=== PATIENT | female | born 1945 | race Caucasian/White ===

== ENCOUNTER 2025-01-27 03:02 | Emergency (ER) | payer OTHER, BC ==
[2025-01-27] MEDS ORDERED: LIDOCAINE 1% 20 ML MDV ONE (04:14)
--- NOTE | 2025-01-27 05:36 | RAD REPORT ---
PROCEDURE: CT Head Without Intravenous Contrast CLINICAL INDICATION: The patient is 79 years old and is Female; head injury Bed Name: 3 TECHNIQUE: Axial computed tomography images of the head/brain without intravenous contrast. Sagittal and coron al reformatted images were created and reviewed. This CT exam was performed using one or more of the following dose reduction techniques: automated exposure control, adjustment of the mA and/or kV according to patient size, and/or use of iterative reconstruction technique. COMPARISON: No relevant prior studies available. FINDINGS: BRAIN: Mild to moderate global cerebral atrophy with commensurate sulcal and ventricular enlargemen t, not greater than expected for patient age. Mild bilateral basal ganglia calcifications, nonspecific but most commonly suggestive of poor ly controlled hypertension. No extra-axial fluid collection. No intracranial hemorrhage. No transtentorial herniation. No focal simeon-white matter differentiation abnormality. MIDLINE SHIFT: No midline shift. VENTRICLES: See above. BONES/JOINTS: No fracture of the calvarium or visualized facial bones. SOFT TISSUES: Moderate-sized left supraorbital scalp contusion. SINUSES: No masses, bony erosion or evidence of acute sinusitis. MASTOID AIR CELLS: Unremarkable as visualized. No mastoid effusion. IMPRESSION: 1. Moderate-sized left supraorbital scalp contusion. 2. Chronic and senescent changes with no acute intracranial abnormality. Electronically signed by: Robb Lerner MD 01/27/2025 05:28 AM CDT Due to temporary technical issues with the PACS/[place] reporting system, reports are being katelin d by the in-house radiologist without review as a courtesy to ensure prompt reporting the interpreting radiologist is fully responsible for the content of the report. Transcribed Date/Time: 01/27/2025 5:36 AM
[2025-01-27] MEDS ORDERED: TDAP (DIPHTH,PERTUSS(ACELL),TET VAC) 0.5 ML VIAL IMVAC ONE (06:20)
--- NOTE | 2025-01-27 06:20 | ER ---
Nurse's Notes [facility] Name: Lacey Juares Age: 79 yrs Sex: Female : 1945 Arrival Date: 01/27/2025 Time: 03:02 Bed 3 Private MD: Diagnosis: Acute fall at home, acute left upper lateral eyelid Laceration , initial encounter;Acute left periorbital contusion, acute left upper cheek abrasion Presentation: 01/27 03:29 Chief complaint: Patient states: S/P FALL AT APROX 0145. PT ARRIVES TO ER WITH br2 LACERATION TO LEFT FOREHEAD SUPERIOR TO LEFT EYEBROW APPROX 1" IN LENGTH. BLEEDING CONTROLLED ON ER ARRIVAL. Coronavirus screen: Client denies travel out of the [place] in the last 14 days. Ebola Screen: Patient denies exposure to infectious person. Initial Sepsis Screen: Does the patient meet any 2 criteria? No. Patient's initial sepsis screen is negative. Does the patient have a suspected source of infection? No. Patient's initial sepsis screen is negative. Risk Assessment: Do you want to hurt yourself or someone else? Patient reports no desire to harm self or others. Onset of symptoms was January 27, 2025 at 01:45. 03:29 Method Of Arrival: Wheelchair br2 03:29 Acuity: ANGELA 3 br2 Triage Assessment: 03:35 General: Appears in no apparent distress. comfortable, slender, Behavior is calm, br2 cooperative. Pain: Unable to use pain scale. DEMENTIA. Historical: - Allergies: 03:35 No Known Allergies; br2 - PMHx: 03:35 Dementia; br2 - Immunization history:: Adult Immunizations up to date. - Infectious Disease History:: Denies. - Social history:: Smoking status: Patient denies any tobacco usage or history of. - Family history:: not pertinent. Screenin:[facility] ED Fall Risk Assessment (Adult) History of falling in the last 3 months, dd2 including since admission Yes- single mechanical fall (1 pt) Confusion or Disorientation Yes (5 pts) Intoxicated or Sedated No (0 pts) Impaired Gait No (0 pts) Mobility Assist Device Used Yes (1 pt) Altered Elimination No (0 pt) Score/Fall Risk Level 3 or more points = High Risk Oriented to surroundings, Maintained a safe environment, Educated pt \\T\\ family on fall prevention, incl call for assistance when getting out of bed, Assessed \\T\\ reinforced patient's understanding of fall precautions, Hourly rounding (assess needs \\T\\ fall precautionary measures) done, Used ambulatory aids as needed (educated on \\T\\ assisted with), Activated bed/chair alarm, Utilized family, sitter, or virtual forestry biology specialist as indicated. Abuse screen: Denies threats or abuse. Denies injuries from another. Nutritional screening: No deficits noted. Tuberculosis screening: No symptoms or risk factors identified. Assessment: 03:50 General: Appears in no apparent distress. uncomfortable, Behavior is cooperative, dd2 restless. Pain: Complains of pain in outer aspect of left eyebrow Unable to use pain scale. Does not appear to understand pain scale. Neuro: Level of Consciousness is awake, alert, confused, Oriented to person, hx dementia. Cardiovascular: No deficits noted. Patient's skin is warm and dry. Respiratory: No deficits noted. Airway is patent Respiratory effort is even, unlabored, Respiratory pattern is regular, symmetrical. GI: No deficits noted. No signs and/or symptoms were reported involving the gastrointestinal system. Abdomen is flat, non-distended, Bowel sounds present X 4 quads. Abd is soft and non tender X 4 quads. : No signs and/or symptoms were reported regarding the genitourinary system. EENT: No deficits noted. No signs and/or symptoms were reported regarding the EENT system. Derm: Wound noted outer aspect of left eyebrow Wound is laceration. Musculoskeletal: Circulation, motion, and sensation intact. Range of motion: intact in all extremities. Injury Description: Laceration sustained to outer aspect of left eyebrow is full thickness, 0.5 to 2.5 cm long, bleeding moderately, was sustained 1-2 hours ago. Vital Signs: 03:29 BP 171 / 99; Pulse 86; Resp 20 S; Temp 97.1(O); Weight 45.36 kg; Height 5 ft. 3 in. ; br2 06:02 BP 156 / 86; Pulse 79; Resp 16; Pulse Ox 98% on R/A; dd2 03:29 Body Mass Index 17.71 (45.36 kg, 160.02 cm) br2 Ariana Coma Score: 03:50 Eye Response: spontaneous(4). Motor Response: localizes pain(5). Verbal Response: dd2 confused(4). Total: 13. 01/28 02:48 Eye Response: spontaneous(4). Motor Response: obeys commands(6). Verbal Response: sp4 incomprehensible(2). Total: 12. ED Course: 01/27 03:05 Patient arrived in ED. [id number] 03:10 Adolfo Newman MD is Attending Physician. sp4 03:31 MARCE NGUYEN RN is Primary Nurse. dd2 03:35 Triage completed. br2 03:35 Arm band placed on right wrist. br2 03:50 Patient has correct armband on for positive identification. Bed in low position. Call dd2 light in reach. Side rails up X2. Adult w/ patient. Placed in gown. Client placed on continuous cardiac and pulse oximetry monitoring. NIBP monitoring applied. rail tractor operator on. Door closed. Noise minimized. Warm blanket given. Pillow given. Verbal reassurance given. 03:50 Patient did not have IV access during this emergency room visit. Patient maintains SpO2 dd2 saturation greater than 95% on room air. 04:02 CT Head Brain wo Cont In Process Unspecified. EDMS 06:18 Assist provider with laceration repair on outer aspect of left eyebrow that was 2.5 cm. dd2 or less using sutures. Set up tray. Performed by Adolfo Newman MD Dressed with 4X4s, Patient tolerated well. 06:30 Provided Education on: d/c education. dd2 Administered Medications: 06:01 Drug: Lidocaine Infiltration (1 %) 20 ml 20 ml Infiltration once; to bedside {Note: dd2 administered by Dr. Newman.} Volume: 20 ml; Route: Infiltration; Site: affected area; 06:26 Follow up: Response: No adverse reaction dd2 06:24 Drug: Boostrix Tdap IM 0.5 ml IM once; as a single dose Route: IM; Site: left deltoid; dd2 06:32 Follow up: Response: (VIS) Vaccine information sheet provided today. Questions and/or dd2 concerns addressed. VIS edition date: Jun 23, 2021.; No adverse reaction Medication: 03:50 VIS not applicable for this client. dd2 06:24 Vaccine Information Statement (VIS) provided today. Questions and/or concerns dd2 addressed. VIS edition date: June 23, 2021. Outcome: 06:20 Discharge ordered by . sp4 06:30 Discharged to home via wheelchair, with family, dd2 :30 Condition: stable 06:30 Discharge instructions given to family, Instructed on discharge instructions, follow up and referral plans. wound care, Demonstrated understanding of instructions, follow-up care, wound care, 06:31 Patient left the ED. dd2 Signatures: Dispatcher [employer] EDMT Radha [id number] Adolfo Newman MD MD sp4 Chanelle Quiroz RN RN br2 MARCE NGUYEN RN RN dd2
--- NOTE | 2025-01-27 06:20 | EDPHYS ---
Physician Documentation [facility] Name: Lacey Juares Age: 79 yrs Sex: Female : 1945 Arrival Date: 01/27/2025 Time: 03:02 Bed 3 Private MD: ED Physician Adolfo Newman HPI: 01/27 03:10 This 79 yrs old Female presents to ER via Unassigned with complaints of Fall sp4 Injury, Head Injury Without LOC-Adult, Laceration To Head. 01/28 02:48 Patient presents with acute fall associated with head injury and laceration to the left sp4 upper eyelid. Patient has history of moderate to heavy dementia and she has reportedly rolled out of bed. Patient is currently on hospice with Dr. Espinoza. Historical: - Allergies: 01/27 03:35 No Known Allergies; br2 - PMHx: 03:35 Dementia; br2 - Immunization history:: Adult Immunizations up to date. - Infectious Disease History:: Denies. - Social history:: Smoking status: Patient denies any tobacco usage or history of. - Family history:: not pertinent. ROS: 01/28 02:48 Constitutional: Negative for fever, chills, and weight loss, positive acute head injury sp4 positive laceration left upper eyelid All other systems are negative, Exam: 02:48 Constitutional: Frail elderly female, thin in stature, nonverbal, there is left sp4 periorbital contusion, left upper eyelid 3 to 4 cm laceration with mild active bleeding. Bleeding controlled with pressure bandage Head/Face: Normocephalic, atraumatic. Eyes: Pupils equal round and reactive to light, extra-ocular motions intact. Lids and lashes normal. Conjunctiva and sclera are not injected. Cornea within normal limits. Periorbital areas with no swelling, redness, or edema. ENT: Nares patent. No nasal discharge, no septal abnormalities noted. Tympanic membranes are normal and external auditory canals are clear. Oropharynx with no redness, swelling, or masses, exudates, or evidence of obstruction, uvula midline. Mucous membranes moist. Neck: Trachea midline, no thyromegaly or masses palpated, and no cervical lymphadenopathy. Supple, full range of motion without nuchal rigidity, or vertebral point tenderness. Chest/axilla: Normal chest wall appearance and motion. Nontender with no deformity. No lesions are appreciated. Cardiovascular: Regular rate and rhythm with a normal S1 and S2. No gallops, murmurs, or rubs. Normal PMI, no JVD. No pulse deficits. Respiratory: Lungs have equal breath sounds bilaterally, clear to auscultation and percussion. No rales, rhonchi or wheezes noted. No increased work of breathing, no retractions or nasal flaring. Abdomen/GI: Soft, with normal bowel sounds. No distension or tympany. No guarding or rebound. No evidence of tenderness throughout. Back: No spinal tenderness. No costovertebral tenderness. Skin: Warm, dry with normal turgor. Normal color with no rashes, no lesions, and no evidence of cellulitis. MS/ Extremity: Pulses equal, no cyanosis. Neurovascular intact. Full, normal range of motion. Neuro: Awake and alert, Motor strength 5/5 in all extremities. Sensory grossly intact. Moderate dementia limits examination. Patient is nonverbal. Grossly no lateralizing deficits Vital Signs: 01/27 03:29 BP 171 / 99; Pulse 86; Resp 20 S; Temp 97.1(O); Weight 45.36 kg; Height 5 ft. 3 in. ; br2 06:02 BP 156 / 86; Pulse 79; Resp 16; Pulse Ox 98% on R/A; dd2 03:29 Body Mass Index 17.71 (45.36 kg, 160.02 cm) br2 Ariana Coma Score: 03:50 Eye Response: spontaneous(4). Motor Response: localizes pain(5). Verbal Response: dd2 confused(4). Total: 13. 01/28 02:48 Eye Response: spontaneous(4). Motor Response: obeys commands(6). Verbal Response: sp4 incomprehensible(2). Total: 12. Laceration: 01/27 06:15 Wound Repair of 4cm ( 1.6in ) subcutaneous laceration to left upper eyelid . sp4 Irregularly shaped.. Minimal bleeding noted.. Distal neuro/vascular/tendon intact. Anesthesia: Wound infiltrated with 10 mls of 1% lidocaine. Wound prep: Moderate cleansing by me, Copious irrigation. Skin closed with 12 6-0 Prolene using simple sutures and sterile technique. Dressed with 4x4's. Patient tolerated well. MDM: 03:17 Medical Screening Exam initiated sp4 05:49 ED course: COMPARISON: No relevant prior studies available. FINDINGS: BRAIN: Mild to sp4 moderate global cerebral atrophy with commensurate sulcal and ventricular enlargement, not greater than expected for patient age. Mild bilateral basal ganglia calcifications, nonspecific but most commonly suggestive of poorly controlled hypertension. No extra-axial fluid collection. No intracranial hemorrhage. No transtentorial herniation. No focal simeon-white matter differentiation abnormality. MIDLINE SHIFT: No midline shift. VENTRICLES: See above. BONES/JOINTS: No fracture of the calvarium or visualized facial bones. RADIOLOGY SERVICES REPORT SOFT TISSUES: Moderate-sized left supraorbital scalp contusion. SINUSES: No masses, bony erosion or evidence of acute sinusitis. MASTOID AIR CELLS: Unremarkable as visualized. No mastoid effusion. IMPRESSION: 1. Moderate-sized left supraorbital scalp contusion. 2. Chronic and senescent changes with no acute intracranial abnormality. Electronically signed by: Robb Lerner MD 01/27/2025 05:28 AM. 01/28 02:51 Differential diagnosis: abrasion, closed head injury, contusion, fracture, laceration, sp4 multiple trauma. Data reviewed: vital signs, nurses notes, radiologic studies, CT scan. Consideration of Admission/Observation Escalation of care including admission/observation considered. 01/27 03:24 Order name: CT Head Brain wo Cont sp4 01/27 03:21 Order name: Dressing - Wound; Complete Time: 06:07 sp4 01/27 03:21 Order name: Gloves, Sterile; Complete Time: 06:07 sp4 01/27 03:21 Order name: Setup Suture Tray; Complete Time: 06:07 sp4 Administered Medications: 01/27 06:01 Drug: Lidocaine Infiltration (1 %) 20 ml 20 ml Infiltration once; to bedside {Note: dd2 administered by Dr. Newman.} Volume: 20 ml; Route: Infiltration; Site: affected area; 06:26 Follow up: Response: No adverse reaction dd2 06:24 Drug: Boostrix Tdap IM 0.5 ml IM once; as a single dose Route: IM; Site: left deltoid; dd2 06:32 Follow up: Response: (VIS) Vaccine information sheet provided today. Questions and/or dd2 concerns addressed. VIS edition date: Jun 23, 2021.; No adverse reaction Disposition: 01/28 02:52 Chart complete. sp4 Disposition Summary: 01/27/25 06:20 Discharge Ordered Notes: Suture removal advised AFTER 14 days Location: Home sp4 Problem: new sp4 Symptoms: have improved sp4 Condition: Stable sp4 Diagnosis - Acute fall at home, acute left upper lateral eyelid Laceration , initial encounter sp4 - Acute left periorbital contusion, acute left upper cheek abrasion sp4 Followup: sp4 - With: Private Physician - When: 10 - 14 days - Reason: Recheck today's complaints Discharge Instructions: - Discharge Summary Sheet sp4 - Laceration Care, Adult, [id number] sp4 Forms: - Patient Portal Instructions sp4 Signatures: Dispatcher [employer] EDAdolfo Montero MD MD sp4 Chanelle Quiroz RN RN br2 MARCE NGUYEN RN RN dd2 Corrections: (The following items were deleted from the chart) 01/27 03:25 03:25 Head Brain Wo Cont+CT.RAD.BRZ ordered. EDMS EDMS
[2025-01-27 06:35] VITALS: TEMP 97.1
[2025-01-27 06:36] VITALS: BP 156/86; O2SAT 98
== END 2025-01-27 06:31 | disposition home or self-care (01) ==
LOC: ER 03:02
DX: S01.112A Laceration without foreign body of left eyelid and periocular area, initial encounter (principal); W06.XXXA Fall from bed, initial encounter; Y92.009 Unspecified place in unspecified non-institutional (private) residence as the place of occurrence of the external cause
CPT/HCPCS: 70450; 12052; J2003; 12013; 96372; 99285